=== PATIENT | female | born 1925 | race Caucasian/White ===

== ENCOUNTER 2016-06-20 16:25 | Emergency (ER) | payer MEDICARE, BC ==
[~2016-06-20] VITALS: Ht 162.6 cm; Wt 66.0 kg
[~2016-06-20 16:25] MED LIST: BENEPOW5 PO; CALCCHW6 CHEW; CEPH500C3 PO; GABA400 PO; MAGN250T13 PO; OCUVTAB4 PO; TEMA15 PO; TRAM50TA PO; VITA400C28 PO; [UNRECOGNIZED DRUG - OTHER] PO
[2016-06-20 16:42] VITALS: BP 122/66; PULSE 87; RESP 16; TEMP 97.9; O2SAT 95
--- NOTE | 2016-06-20 18:15 | PD ---
HPI Chief Complaint: GI Complaint Time Seen by Provider: 17:56 Travel History International Travel<30 days: No Contact w/Intl Traveler<30days: No Traveled to known affect area: No History of Present Illness HPI 89yo F with PMH of gastric ulcer was sent by PMD's office for black stool for 3 days. Pt has been having epigastric pain for 3 days as well. States it is intermittent and currently has no pain. Denies any fever, chest pain, sob, n/v , urinary complaints, focal weakness or numbness. Pt was admitted for GI bleed 01/2014 and had EGD with biopsy that showed gastric ulcer, gastritis. Also had colonoscopy that showed diverticulosis. Pt has been following up with GI physician Dr. Lima and had EGD 2014 that was normal. PFSH Past Medical History Arthritis: Yes Autoimmune Disease: No Blood Disorders: No Heart Rhythm Problems: No Cancer: No Cardiovascular Problems: No High Cholesterol: No Chest Pain: No Congestive Heart Failure: No Cerebrovascular Accident: No Diabetes: No Diminished Hearing: No Endocrine: No Gastrointestinal Disorders: Yes (CONSTIPATION A APROBLEM TAKES BENEFIBER & STOOL SOFTENER DAILY ) Glaucoma: No Genitourinary: No Headaches: No Hepatitis: No Hiatal Hernia: No Hypertension: No Immune Disorder: No Musculoskeletal: Yes (ARTHRITIS,BACK PROBLEMS--LUMBAR DEGENERATIVE DISCS) Neurologic: No Psychiatric: No Reproductive: No Respiratory: Yes (PT SMOKES 6 CIGS DAILY) Immunizations Current: Yes Seizures: No Thyroid Disease: No Past Surgical History Abdominal Surgery: Yes (CHOLECYSTECTOMY,APPENDECTOMY) AICD: No Appendectomy: Yes Body Medical Devices: PIN RIGHT SHOULDER Cardiac Surgery: No Cholecystectomy: Yes Ear Surgery: No Endocrine Surgery: No Eye Surgery: No Genitourinary Surgery: No Gynecologic Surgery: Yes (HYSTERECTOMY) Joint Replacement: Yes (R TOTAL KNEE) Neurologic Surgery: No Oral Surgery: Yes (TONSILLECTOMY,PERIODONTAL SURGERY) Pacemaker: No Thoracic Surgery: No Other Surgery: Yes (VEIN STRIPPING) Social History Alcohol Use: Yes (4 OZ/DAY WINE) Tobacco Use: Yes (1/2PK/DAY) Substance Use: No Allergies-Medications (Allergen,Severity, Reaction): Coded Allergies: Actonel (Verified Allergy, Intermediate, NAUSEA, 06/20/16) ADVERSE REACTION Celebrex (Verified Allergy, Intermediate, NAUSEA, 06/20/16) Codeine (Verified Allergy, Intermediate, UPSET STOMACH, 06/20/16) Cymbalta (Unverified Allergy, Intermediate, SWOLLEN JAW, SORES IN MOUTH, ) Daypro (Verified Allergy, Intermediate, 06/20/16) Evista (Verified Allergy, Intermediate, NAUSEA, 06/20/16) Fosamax (Verified Allergy, Intermediate, NAUSEA, 06/20/16) Hydrocodone (Verified Allergy, Intermediate, 06/20/16) VOMITING Lorcet (Verified Allergy, Intermediate, VOMITING, 06/20/16) Lortab (Verified Allergy, Intermediate, NAUSEA, 06/20/16) Mevacor (Verified Allergy, Intermediate, 06/20/16) PT STATES SHE HAD NO PROBLEM WITH THIS MEDICATION. HEARD IT COULD AFFECT HER LIVER AND DECIDED NOT TO TAKE IT. Percocet (Verified Allergy, Intermediate, VOMITING, 06/20/16) Sudafed (Verified Allergy, Intermediate, 06/20/16) Topamax (Verified Allergy, Intermediate, STOMACH UPSET, 06/20/16) Vioxx (Verified Allergy, Intermediate, NAUSEA, 06/20/16) Voltaren (Verified Allergy, Intermediate, LIVER PROBLEMS, 06/20/16) PT HAD NO REACTION. HEARD THAT MED COULD CAUSE LIVER PROBLEMS AND DECIDED NOT TO TAKE IT. Nonsteroidal Anti-Inflammatory Agts (Unverified Adverse Reaction, Intermediate, STOMACH ACHE, 06/20/16) Pramipexole (Unverified Adverse Reaction, Intermediate, STOMACH ACHE, 06/20) Reported Meds & Prescriptions Reported Meds & Active Scripts Active Omeprazole 20 Mg Tab 20 Mg PO DAILY 10 Days Reported Vitamin C (Ascorbic Acid) 500 Mg Cap 500 Mg PO DAILY Centrum Silver (Multiple Vitamins W/ Minerals) 1 Tab 1 Tab PO DAILY Miralax (Polyethylene Glycol 3350) 1 Pow Pow 1 Pkt PO DAILY Viactiv (Calcium-Vitamins D & K) 500-500-40 Mg-Unit-Mcg Chew 2 Ea CHEW DAILY Vitamin D (Cholecalciferol) 2,000 Unit Cap 2,000 Units PO DAILY Magnesium 100 Mg Cap 25 Mg PO DAILY Pramipexole (Pramipexole Dihydrochloride) 0.25 Mg Tab 0.25 Mg PO 1800 Preservision Areds (Multiple Vitamins W/ Minerals) 1 Tab 1 Tab PO DAILY Pramipexole (Pramipexole Dihydrochloride) 0.5 Mg Tab 0.5 Mg PO HS Pramipexole (Pramipexole Dihydrochloride) 0.25 Mg Tab 0.25 Mg PO 1500 Tramadol (Tramadol HCl) 50 Mg Tab 50 Mg PO Q6H PRN Gabapentin 600 Mg Tab 900 Mg PO TID Review of Systems Except as stated in HPI: all other systems reviewed are Neg Physical Exam Narrative GENERAL: 89yo F not in distress. SKIN: Warm and dry. HEAD: Atraumatic. Normocephalic. EYES: Pupils equal and round. No scleral icterus. No injection or drainage. CARDIOVASCULAR: Regular rate and rhythm. No murmur appreciated. RESPIRATORY: No accessory muscle use. Clear to auscultation. Breath sounds equal bilaterally. GASTROINTESTINAL: Abdomen soft, non-tender, nondistended. No rebound tenderness or guarding. RECTAL: Very small amount of stool, appears dark, negative hemaprompt. MUSCULOSKELETAL: No obvious deformities. No clubbing. No cyanosis. No edema. NEUROLOGICAL: Awake and alert. No obvious cranial nerve deficits. Motor grossly within normal limits. Normal speech. PSYCHIATRIC: Appropriate mood and affect; insight and judgment normal. Data Data Last Documented VS Vital Signs Date Time Temp Pulse Resp B/P Pulse Ox O2 Delivery O2 Flow Rate FiO2 06/20/16 19:47 89 177/89 95 Room Air 06/20/16 18:47 18 06/20/16 16:42 97.9 Orders Complete Blood Count With Diff (06/20/16 18:07) Basic Metabolic Panel (Bmp) (06/20/16 18:07) Prothrombin Time / Inr (Pt) (06/20/16 18:07) Act Partial Throm Time (Ptt) (06/20/16 18:07) Type And Screen (06/20/16 18:07) Lipase (06/20/16 18:07) Electrocardiogram (06/20/16 ) Troponin I (06/20/16 18:07) Sodium Chlorid 0.9% 500 Ml Inj (Ns 500 M (06/20/16 19:30) Labs Laboratory Tests Test 06/20/16 18:30 White Blood Count 5.8 TH/MM3 Red Blood Count 4.59 MIL/MM3 Hemoglobin 13.2 GM/DL Hematocrit 41.0 % Mean Corpuscular Volume 89.2 FL Mean Corpuscular Hemoglobin 28.7 PG Mean Corpuscular Hemoglobin 32.2 % Concent Red Cell Distribution Width 15.9 % Platelet Count 347 TH/MM3 Mean Platelet Volume 6.8 FL Neutrophils (%) (Auto) 55.3 % Lymphocytes (%) (Auto) 28.2 % Monocytes (%) (Auto) 11.3 % Eosinophils (%) (Auto) 4.1 % Basophils (%) (Auto) 1.1 % Neutrophils # (Auto) 3.2 TH/MM3 Lymphocytes # (Auto) 1.6 TH/MM3 Monocytes # (Auto) 0.7 TH/MM3 Eosinophils # (Auto) 0.2 TH/MM3 Basophils # (Auto) 0.1 TH/MM3 CBC Comment DIFF FINAL Differential Comment Prothrombin Time 10.9 SEC Prothromb Time International 1.0 RATIO Ratio Activated Partial 27.5 SEC Thromboplast Time Sodium Level 140 MEQ/L Potassium Level 4.7 MEQ/L Chloride Level 105 MEQ/L Carbon Dioxide Level 26.3 MEQ/L Anion Gap 9 MEQ/L Blood Urea Nitrogen 31 MG/DL Creatinine 0.87 MG/DL Estimat Glomerular Filtration 61 ML/MIN Rate Random Glucose 85 MG/DL Calcium Level 8.7 MG/DL Troponin I 0.07 NG/ML Lipase 126 U/L Blood Type O POSITIVE Antibody Screen NEGATIVE MDM Medical Decision Making Medical Screen Exam Complete: Yes Emergency Medical Condition: Yes Interpretation(s) EKG: NSR 69bpm. RBBB. TWI III. Unchanged from prior. Laboratory Tests Test 06/20/16 18:30 White Blood Count 5.8 TH/MM3 (4.0-11.0) Red Blood Count 4.59 MIL/MM3 (4.00-5.30) Hemoglobin 13.2 GM/DL (11.6-15.3) Hematocrit 41.0 % (35.0-46.0) Mean Corpuscular Volume 89.2 FL (80.0-100.0) Mean Corpuscular Hemoglobin 28.7 PG (27.0-34.0) Mean Corpuscular Hemoglobin 32.2 % Concent (32.0-36.0) Red Cell Distribution Width 15.9 % (11.6-17.2) Platelet Count 347 TH/MM3 (150-450) Mean Platelet Volume 6.8 FL (7.0-11.0) Neutrophils (%) (Auto) 55.3 % (16.0-70.0) Lymphocytes (%) (Auto) 28.2 % (9.0-44.0) Monocytes (%) (Auto) 11.3 % (0.0-8.0) Eosinophils (%) (Auto) 4.1 % (0.0-4.0) Basophils (%) (Auto) 1.1 % (0.0-2.0) Neutrophils # (Auto) 3.2 TH/MM3 (1.8-7.7) Lymphocytes # (Auto) 1.6 TH/MM3 (1.0-4.8) Monocytes # (Auto) 0.7 TH/MM3 (0-0.9) Eosinophils # (Auto) 0.2 TH/MM3 (0-0.4) Basophils # (Auto) 0.1 TH/MM3 (0-0.2) CBC Comment DIFF FINAL Differential Comment Prothrombin Time 10.9 SEC (9.8-11.6) Prothromb Time International 1.0 RATIO Ratio Activated Partial 27.5 SEC Thromboplast Time (24.3-30.1) Sodium Level 140 MEQ/L (136-145) Potassium Level 4.7 MEQ/L (3.5-5.1) Chloride Level 105 MEQ/L (98-107) Carbon Dioxide Level 26.3 MEQ/L (21.0-32.0) Anion Gap 9 MEQ/L (5-15) Blood Urea Nitrogen 31 MG/DL (7-18) Creatinine 0.87 MG/DL (0.50-1.00) Estimat Glomerular Filtration 61 ML/MIN (>89) Rate Random Glucose 85 MG/DL (74-106) Calcium Level 8.7 MG/DL (8.5-10.1) Troponin I 0.07 NG/ML (0.02-0.05) Lipase 126 U/L (73-393) Differential Diagnosis Black stool secondary to peptol bismol use vs. Upper GI bleed secondary to gastritis vs. gastric ulcer vs. pancreatitis vs. atypical ACS Narrative Course 89yo F was sent here for black stool for 3 days. Pt was sent here by PMD's office. I checked hemaprompt twice at different times and it was negative both times. Pt does have black stool and states she took peptol bismol on Saturday so that may be the cause of black stool. Pt's abdominal exam is benign. Pt's vital signs are normal. H/H is 13.2/41.0. BUN is elevated at 31, will give NS IVF 500cc. Pt is tolerating PO and just has not been eating or drinking much today because she was at at doctor's office all day. Lipase normal. Troponin is mildly elevated at 0.07. Pt has no chest pain or sob. Pt has had elevated troponin before in her last admission in [address] Kiran. She states Dr. Kiran checked her heart and everything was fine. I discussed the case with Dr. Kiran and he states that she can follow up with him as an outpatient. Pt also has an appointment with GI and informed to call them and follow up with him earlier. Strict return precautions given. HemaPrompt Point of Care Internal Pos. & Neg. Controls: Passed Fecal Specimen Occult Blood: Negative Diagnosis Primary Impression: Abdominal pain Qualified Code: R10.13 - Epigastric pain Referrals: Hong Kiran MD call for appointment Patient Instructions: General Instructions Departure Forms: Tests/Procedures Additional Instructions: Please call Dr. Kiran's office and follow up with him as an outpatient. Please also follow up with your GI physician Dr. Lima as an outpatient. Return to the ED immediately if you have chest pain, sob, dizziness, nausea, vomiting, worsening abdominal pain, or continue black stool. Med/Other Pt SpecificInfo: Prescription(s) given Scripts Omeprazole 20 Mg Tab20 Mg PO DAILY 10 Days Ref 0 Prov:Tiffanie Blankenship DO 06/20/16 Disposition: 01 DISCHARGE HOME Condition: Stable Tiffanie Blankenship DO Jun 20, 2016 18:14
[2016-06-20 18:36] LABS: AUTOMATED NEUTROPHIL # 3.2 TH/MM3 (1.8-7.7); BASOPHIL # 0.1 TH/MM3 (0-0.2); BASOPHIL % 1.1 % (0.0-2.0); EOSINOPHIL # 0.2 TH/MM3 (0-0.4); EOSINOPHIL % 4.1 % (0.0-4.0); HEMO FLAGS DIFF FINAL; LYMPH % 28.2 % (9.0-44.0); LYMPHOCYTE # 1.6 TH/MM3 (1.0-4.8); MEAN CELL VOLUME 89.2 FL (80.0-100.0); MEAN CORPUSCULAR HEMOGLOBIN 28.7 PG (27.0-34.0); MEAN CORPUSCULAR HGB CONC 32.2 % (32.0-36.0); MONO % 11.3 % (0.0-8.0); NEUT % 55.3 % (16.0-70.0); PLATELET COUNT 347 TH/MM3 (150-450); RED BLOOD COUNT 4.59 MIL/MM3 (4.00-5.30); RED CELL DISTRIBUTION WIDTH 15.9 % (11.6-17.2); WHITE BLOOD COUNT 5.8 TH/MM3 (4.0-11.0)
[2016-06-20] MEDS ORDERED: VITA200013 PO (18:45)
[2016-06-20] MEDS ORDERED: MIRA3350 PO (18:45)
[2016-06-20] MEDS ORDERED: GABA600T PO (18:45)
[2016-06-20] MEDS ORDERED: TRAM50TA PO (18:45)
[2016-06-20] MEDS ORDERED: OCUVTAB4 PO (18:45)
[2016-06-20] MEDS ORDERED: ASCO500C PO (18:45)
[2016-06-20] MEDS ORDERED: CENTTAB PO (18:45)
[2016-06-20] MEDS ORDERED: PRAM0.25 PO ×2 (18:45)
[2016-06-20] MEDS ORDERED: CALC8.5C CHEW (18:45)
[2016-06-20] MEDS ORDERED: M2 M100C PO (18:45)
[2016-06-20] MEDS ORDERED: PRAM0.5T PO (18:45)
[2016-06-20 18:47] VITALS: BP 159/91; PULSE 69; RESP 18; O2SAT 95
[2016-06-20 18:55] LABS: BICARBONATE 26.3 MEQ/L (21.0-32.0)
[2016-06-20 18:57] LABS: APTT (PATIENT) 27.5 SEC (24.3-30.1); PROTHROMBIN TIME - PATIENT 10.9 SEC (9.8-11.6)
[2016-06-20 19:03] LABS: POTASSIUM 4.7 MEQ/L (3.5-5.1)
[2016-06-20] MEDS ORDERED: SODIUM CHLORID 0.9% 500 ML INJ 500 ML IV ONE (19:30)
[2016-06-20] MEDS ORDERED: OMEP20TA PO (19:32)
[2016-06-20 19:47] VITALS: BP 177/89; PULSE 89; O2SAT 95
--- NOTE | 2016-06-21 13:58 | EKG ---
Date Performed: 06/20/2016 Time Performed: 18:32:52 PTAGE: 89 years EKG: Sinus rhythm Left axis deviation RBBB with left anterior fascicular block Abnormal ECG PREVIOUS TRACING : 01/22/2014 16.59 DOCTOR: Bernabe Mcelroy Interpretating Date/Time 06/21/2016 13:53:19
== END 2016-06-20 20:07 | disposition home or self-care (01) ==
LOC: PHED 16:25
DX: R10.13 Epigastric pain (principal); F17.210 Nicotine dependence, cigarettes, uncomplicated; R94.31 Abnormal electrocardiogram [ECG] [EKG]
CPT/HCPCS: 80048; 83690; 84484; 85025; 85610; 85730; 86850; 86900; 86901; 93005; 99284; J7040

== ENCOUNTER 2016-08-17 11:35 | Emergency (ER) | payer MEDICARE, BC ==
[~2016-08-17] VITALS: Ht 162.6 cm; Wt 66.1 kg
[~2016-08-17 11:35] MED LIST changes: +ASCO500C PO; -BENEPOW5 PO; +CALC8.5C CHEW; -CALCCHW6 CHEW; +CENTTAB PO; -CEPH500C3 PO; -GABA400 PO; +GABA600T PO; +M2 M100C PO; -MAGN250T13 PO; +MIRA3350 PO; +OMEP20TA PO; +PRAM0.25 PO; +PRAM0.5T PO; -TEMA15 PO; +VITA200013 PO; -VITA400C28 PO; -[UNRECOGNIZED DRUG - OTHER] PO
[2016-08-17 11:47] VITALS: BP 141/91; PULSE 88; RESP 16; TEMP 98.4; O2SAT 97
--- NOTE | 2016-08-17 12:01 | PD ---
HPI Chief Complaint: Musculoskeletal Complaint Time Seen by Provider: 11:58 Travel History International Travel<30 days: No Contact w/Intl Traveler<30days: No Traveled to known affect area: No History of Present Illness HPI 89-year-old female presents the emergency Department with worsening left-sided shoulder pain over the past 5 days. There is been no history of injury, fever, or cough, nausea, or other symptoms. Patient states the pain is gotten progressively worse and now is a 9-10 over 10. Seems worse with movement. Patient has no history of rheumatoid arthritis, or cardiac history according to the patient. Patient states she recently underwent a stress test a month ago. Patient has significant allergy history please see list. PFSH Past Medical History Arthritis: Yes Autoimmune Disease: No Blood Disorders: No Heart Rhythm Problems: No Cancer: No Cardiovascular Problems: No High Cholesterol: No Chest Pain: No Congestive Heart Failure: No Cerebrovascular Accident: No Diabetes: No Diminished Hearing: No Endocrine: No Gastrointestinal Disorders: Yes (CONSTIPATION A APROBLEM TAKES BENEFIBER & STOOL SOFTENER DAILY ) Glaucoma: No Genitourinary: No Headaches: No Hepatitis: No Hiatal Hernia: No Hypertension: No Immune Disorder: No Musculoskeletal: Yes (ARTHRITIS,BACK PROBLEMS--LUMBAR DEGENERATIVE DISCS) Neurologic: No Psychiatric: No Reproductive: No Respiratory: Yes Immunizations Current: Yes Seizures: No Thyroid Disease: No ?: Not Past Surgical History Abdominal Surgery: Yes (CHOLECYSTECTOMY,APPENDECTOMY) AICD: No Appendectomy: Yes Body Medical Devices: PIN RIGHT SHOULDER Cardiac Surgery: No Cholecystectomy: Yes Ear Surgery: No Endocrine Surgery: No Eye Surgery: No Genitourinary Surgery: No Gynecologic Surgery: Yes (HYSTERECTOMY) Joint Replacement: Yes (R TOTAL KNEE) Neurologic Surgery: No Oral Surgery: Yes (TONSILLECTOMY,PERIODONTAL SURGERY) Pacemaker: No Thoracic Surgery: No Other Surgery: Yes (VEIN STRIPPING) Social History Alcohol Use: Yes (4 OZ/DAY WINE) Tobacco Use: No (former) Substance Use: No Allergies-Medications (Allergen,Severity, Reaction): Coded Allergies: Actonel (Verified Allergy, Intermediate, NAUSEA, 08/17/16) ADVERSE REACTION Celebrex (Verified Allergy, Intermediate, NAUSEA, 08/17/16) Codeine (Verified Allergy, Intermediate, UPSET STOMACH, 08/17/16) Cymbalta (Unverified Allergy, Intermediate, SWOLLEN JAW, SORES IN MOUTH, ) Daypro (Verified Allergy, Intermediate, 08/17/16) Evista (Verified Allergy, Intermediate, NAUSEA, 08/17/16) Fosamax (Verified Allergy, Intermediate, NAUSEA, 08/17/16) Hydrocodone (Verified Allergy, Intermediate, 08/17/16) VOMITING Lorcet (Verified Allergy, Intermediate, VOMITING, 08/17/16) Lortab (Verified Allergy, Intermediate, NAUSEA, 08/17/16) Mevacor (Verified Allergy, Intermediate, 08/17/16) PT STATES SHE HAD NO PROBLEM WITH THIS MEDICATION. HEARD IT COULD AFFECT HER LIVER AND DECIDED NOT TO TAKE IT. Percocet (Verified Allergy, Intermediate, VOMITING, 08/17/16) Sudafed (Verified Allergy, Intermediate, 08/17/16) Topamax (Verified Allergy, Intermediate, STOMACH UPSET, 08/17/16) Vioxx (Verified Allergy, Intermediate, NAUSEA, 08/17/16) Voltaren (Verified Allergy, Intermediate, LIVER PROBLEMS, 08/17/16) PT HAD NO REACTION. HEARD THAT MED COULD CAUSE LIVER PROBLEMS AND DECIDED NOT TO TAKE IT. Nonsteroidal Anti-Inflammatory Agts (Unverified Adverse Reaction, Intermediate, STOMACH ACHE, 08/17/16) Pramipexole (Unverified Adverse Reaction, Intermediate, STOMACH ACHE, 08/17) Reported Meds & Prescriptions Reported Meds & Active Scripts Active Omeprazole 20 Mg Tab 20 Mg PO DAILY 10 Days Reported Dicyclomine (Dicyclomine HCl) 10 Mg Cap 10 Mg PO QID Promethazine (Promethazine HCl) 12.5 Mg Tab 12.5 Mg PO Q6H PRN Omeprazole 20 Mg Tab 20 Mg PO DAILY Cephalexin 500 Mg Cap 500 Mg PO Q12H Vitamin C (Ascorbic Acid) 500 Mg Cap 500 Mg PO DAILY Centrum Silver (Multiple Vitamins W/ Minerals) 1 Tab 1 Tab PO DAILY Miralax (Polyethylene Glycol 3350) 1 Pow Pow 1 Pkt PO DAILY Viactiv (Calcium-Vitamins D & K) 500-500-40 Mg-Unit-Mcg Chew 2 Ea CHEW DAILY Vitamin D (Cholecalciferol) 2,000 Unit Cap 2,000 Units PO DAILY Magnesium 100 Mg Cap 25 Mg PO DAILY Preservision Areds (Multiple Vitamins W/ Minerals) 1 Tab 1 Tab PO DAILY Pramipexole (Pramipexole Dihydrochloride) 0.5 Mg Tab 0.5 Mg PO HS Pramipexole (Pramipexole Dihydrochloride) 0.25 Mg Tab 0.25 Mg PO 1500 Tramadol (Tramadol HCl) 50 Mg Tab 50 Mg PO Q6H PRN Gabapentin 600 Mg Tab 900 Mg PO TID Review of Systems Except as stated in HPI: all other systems reviewed are Neg General / Constitutional: No: Fever Eyes: No: Visual changes HENT: No: Headaches Cardiovascular: No: Chest Pain or Discomfort Respiratory: No: Shortness of Breath Gastrointestinal: No: Abdominal Pain Genitourinary: No: Dysuria Musculoskeletal: Positive: Arthralgias (see history present illness.), Limited ROM, Pain Skin: No Rash Neurologic: No: Weakness Psychiatric: No: Depression Endocrine: No: Polydipsia Hematologic/Lymphatic: No: Easy Bruising Physical Exam Narrative GENERAL: Patient appears in moderate distress due to pain. SKIN: Warm and dry. Normal color. Normal turgor. No obvious signs of infection. HEAD: Atraumatic. Normocephalic. EYES: Pupils equal and round. No scleral icterus. No injection or drainage. ENT: No nasal bleeding or discharge. Mucous membranes pink and moist. Pharynx is clear. NECK: Trachea midline. No JVD. Neck is nontender and has normal range of motion. CARDIOVASCULAR: Regular rate and rhythm. No murmurs gallops or rubs RESPIRATORY: No accessory muscle use. Clear to auscultation. Breath sounds equal bilaterally. GASTROINTESTINAL: Abdomen soft, non-tender, nondistended. Hepatic and splenic margins not palpable. MUSCULOSKELETAL: Extremities without clubbing, cyanosis, or edema. No obvious deformities. She complains of pain in the left shoulder with palpation and motion. No obvious deformity is noted. No signs of infection or effusion is noted. No signs of dislocation or fracture noted. NEUROLOGICAL: Awake and alert. No obvious cranial nerve deficits. Motor grossly within normal limits. Five out of 5 muscle strength in the arms and legs. Normal speech. PSYCHIATRIC: Appropriate mood and affect; insight and judgment normal. Data Data Last Documented VS Vital Signs Date Time Temp Pulse Resp B/P Pulse Ox O2 Delivery O2 Flow Rate FiO2 08/17/16 12:55 97 Room Air 08/17/16 11:47 98.4 88 16 141/91 Orders Electrocardiogram (08/17/16 12:02) Ckmb (Isoenzyme) Profile (08/17/16 12:02) Complete Blood Count With Diff (08/17/16 12:02) Comprehensive Metabolic Panel (08/17/16 12:02) Magnesium (Mg) (08/17/16 12:02) Prothrombin Time / Inr (Pt) (08/17/16 12:02) Act Partial Throm Time (Ptt) (08/17/16 12:02) Troponin I (08/17/16 12:02) Chest, Single Ap (08/17/16 12:02) Ecg Monitoring (08/17/16 12:02) Bilateral Bp Monitoring (08/17/16 12:02) Iv Access Insert/Monitor (08/17/16 12:) Oximetry (08/17/16 12:02) Oxygen Administration (08/17/16 12:02) Aspirin Chew (Aspirin Chew) (08/17/16 12:15) Morphine Inj (Morphine Inj) (08/17/16 12:15) Sodium Chloride 0.9% Flush (Ns Flush) (08/17/16 12:15) Ondansetron Inj (Zofran Inj) (08/17/16 12:15) Shoulder, Complete (>2vws) (08/17/16 12:02) Ice/Cold Pack (08/17/16 12:02) Westergren Sedimentation Rate (08/17/16 12:02) Dexamethasone Inj (Decadron Inj) (08/17/16 12:15) B-Type Natriuretic Peptide (08/17/16 12:59) Nitroglycerin 2% Oint (Nitroglycerin 2% (08/17/16 13:00) MDM Medical Decision Making Medical Screen Exam Complete: Yes Emergency Medical Condition: Yes Medical Record Reviewed: Yes Differential Diagnosis Left shoulder pain. Possible rotator cuff tendinitis. Possible cardiac syndrome. Narrative Course Patient is in pain but apparently medically stable at time of exam. Labs ordered including CBC, CMP, cardiac panel, ESR, and proBNP. EKG is ordered as well as chest x-ray and left shoulder x-ray. Patient is given 4 mg IV Zofran, 4 mg IV morphine. Patient is discussed with Dr. Linton is the patient's test x-ray suggestive of possible CHF, and care is taken over by him at 1300 hrs. Patient is given aspirin 324 mg by mouth as well as 1 inch nitroglycerin paste. Final disposition will be determined by Dr. Linton. Condition: Stable Maicol Villarreal August 17, 2016 12:01
[2016-08-17] MEDS ORDERED: CEPH500C PO (12:06)
[2016-08-17] MEDS ORDERED: PROM12.54 PO (12:06)
[2016-08-17] MEDS ORDERED: OMEP20TA PO (12:06)
[2016-08-17] MEDS ORDERED: DICY10CA12 PO (12:06)
[2016-08-17] MEDS ORDERED: ASPIRIN 81 MG CHEW TAB PO ONE (12:15)
[2016-08-17] MEDS ORDERED: DEXAMETHASONE SOD PHOS 20 MG/5 ML VIAL IV PUSH ONE (12:15)
[2016-08-17] MEDS ORDERED: SODIUM CHLORIDE 0.9% FLUSH 10 ML FLUSH IVF PRN (12:15)
[2016-08-17] MEDS ORDERED: ONDANSETRON HCL 4 MG/2 ML VIAL IV PUSH ONE (12:15)
[2016-08-17] MEDS ORDERED: MORPHINE SULFATE 4 MG/ML INJ IV PUSH ONE (12:15)
--- NOTE | 2016-08-17 12:48 | RADHPO ---
EXAM DATE/TIME: 08/17/2016 12:10 [facility] COMPARISON: No previous studies available for comparison. INDICATIONS : Short of breath MEDICAL HISTORY : None. SURGICAL HISTORY : None. ENCOUNTER: Initial ACUITY: 1 day PAIN SCORE: 10/10 LOCATION: Bilateral chest FINDINGS: There is cardiomegaly with mild interstitial edema present. There is no evidence of consolidation, p leural effusion or pneumothorax. The portion of the bony skeleton visualized is unremarkable. CONCLUSION: Mild to moderate congestive failure. Jesse Infante MD FACR on August 17, 2016 at 12:45 Board Certified Radiologist. This report was verified electronically.
--- NOTE | 2016-08-17 12:50 | RADHPO ---
EXAM DATE/TIME: 08/17/2016 12:12 [facility] COMPARISON: No previous studies available for comparison. INDICATIONS : Left shoulder pain with no known injury MEDICAL HISTORY : None. SURGICAL HISTORY : None. ENCOUNTER: Initial ACUITY: 4 - 6 days PAIN SCORE: 10/10 LOCATION: Left entire shoulder FINDINGS: Multiple view examination of the left shoulder demonstrates no evidence of fracture or dislocation. The glenohumeral and acromioclavicular joints are maintained. There is normal range of motion betwee n internal and external rotation. Bony mineralization is normal. CONCLUSION: No acute disease. No significant arthropathy. Cr James MD on August 17, 2016 at 12:47 Board Certified Radiologist. This report was verified electronically.
[2016-08-17 12:55] VITALS: O2SAT 97
[2016-08-17] MEDS ORDERED: NITROGLYCERIN 2% OINT 1 GM PACKET TOPICAL ONE (13:00)
[2016-08-17 13:01] LABS: AUTOMATED NEUTROPHIL # 7.8 TH/MM3 (1.8-7.7); BASOPHIL % 0.2 % (0.0-2.0); EOSINOPHIL % 0.2 % (0.0-4.0); HEMATOCRIT 38.3 % (35.0-46.0); HEMO FLAGS DIFF FINAL; LYMPH % 5.7 % (9.0-44.0); LYMPHOCYTE # 0.5 TH/MM3 (1.0-4.8); MEAN CELL VOLUME 87.2 FL (80.0-100.0); MEAN CORPUSCULAR HEMOGLOBIN 28.5 PG (27.0-34.0); MEAN CORPUSCULAR HGB CONC 32.7 % (32.0-36.0); MONO % 6.7 % (0.0-8.0); NEUT % 87.2 % (16.0-70.0); PLATELET COUNT 322 TH/MM3 (150-450); RED BLOOD COUNT 4.39 MIL/MM3 (4.00-5.30); RED CELL DISTRIBUTION WIDTH 13.6 % (11.6-17.2); WHITE BLOOD COUNT 8.9 TH/MM3 (4.0-11.0)
[2016-08-17 13:02] VITALS: BP_SYST 127; BP_SYST 173; BP_DIAS 68; BP_DIAS 70; PULSE 82; RESP 20; O2SAT 94
[2016-08-17 13:17] LABS: CHLORIDE 94 MEQ/L (98-107); POTASSIUM 3.5 MEQ/L (3.5-5.1); SODIUM (NA) 133 MEQ/L (136-145)
[2016-08-17 13:21] LABS: ANION GAP 7 MEQ/L (5-15); BICARBONATE 31.9 MEQ/L (21.0-32.0); BLOOD UREA NITROGEN 16 MG/DL (7-18); MAGNESIUM 2.4 MG/DL (1.5-2.5)
[2016-08-17 13:22] LABS: APTT (PATIENT) 31.4 SEC (24.3-30.1); PROTHROMBIN TIME - PATIENT 10.6 SEC (9.8-11.6)
[2016-08-17 13:24] LABS: ALT (GPT) 20 U/L (10-53); AST (GOT) 21 U/L (15-37); GLOMERULAR FILTRATION RATE 92 ML/MIN (>89)
[2016-08-17 13:25] LABS: TOTAL BILIRUBIN ADULT 0.4 MG/DL (0.2-1.0)
[2016-08-17 13:27] LABS: ALKALINE PHOSPHATASE 61 U/L (45-117); CREATINE KINASE 118 U/L (26-192)
[2016-08-17 13:39] LABS: CKMB 0.5 NG/ML (0.5-3.6)
[2016-08-17 15:10] VITALS: BP 169/82; PULSE 73; RESP 20; O2SAT 94
--- NOTE | 2016-08-17 15:13 | PD ---
Data Data Last Documented VS Vital Signs Date Time Temp Pulse Resp B/P Pulse Ox O2 Delivery O2 Flow Rate FiO2 08/17/16 13:02 82 20 173/70 94 Nasal Cannula 2 127/68 08/17/16 11:47 98.4 Orders Electrocardiogram (08/17/16 12:02) Ckmb (Isoenzyme) Profile (08/17/16 12:02) Complete Blood Count With Diff (08/17/16 12:02) Comprehensive Metabolic Panel (08/17/16 12:02) Magnesium (Mg) (08/17/16 12:02) Prothrombin Time / Inr (Pt) (08/17/16 12:02) Act Partial Throm Time (Ptt) (08/17/16 12:02) Troponin I (08/17/16 12:02) Chest, Single Ap (08/17/16 12:02) Ecg Monitoring (08/17/16 12:02) Bilateral Bp Monitoring (08/17/16 12:02) Iv Access Insert/Monitor (08/17/16 12:02) Oximetry (08/17/16 12:02) Oxygen Administration (08/17/16 12:02) Aspirin Chew (Aspirin Chew) (08/17/16 12:15) Morphine Inj (Morphine Inj) (08/17/16 12:15) Sodium Chloride 0.9% Flush (Ns Flush) (08/17/16 12:15) Ondansetron Inj (Zofran Inj) (08/17/16 12:15) Shoulder, Complete (>2vws) (08/17/16 12:02) Ice/Cold Pack (08/17/16 12:02) Westergren Sedimentation Rate (08/17/16 12:02) Dexamethasone Inj (Decadron Inj) (08/17/16 12:15) B-Type Natriuretic Peptide (08/17/16 12:59) Nitroglycerin 2% Oint (Nitroglycerin 2% (08/17/16 13:00) CKMB (08/17/16 12:40) CKMB% (08/17/16 12:40) Labs Laboratory Tests Test 08/17/16 5 12:40 13:10 White Blood Count 8.9 TH/MM3 Red Blood Count 4.39 MIL/MM3 Hemoglobin 12.5 GM/DL Hematocrit 38.3 % Mean Corpuscular Volume 87.2 FL Mean Corpuscular Hemoglobin 28.5 PG Mean Corpuscular Hemoglobin 32.7 % Concent Red Cell Distribution Width 13.6 % Platelet Count 322 TH/MM3 Mean Platelet Volume 6.5 FL Neutrophils (%) (Auto) 87.2 % Lymphocytes (%) (Auto) 5.7 % Monocytes (%) (Auto) 6.7 % Eosinophils (%) (Auto) 0.2 % Basophils (%) (Auto) 0.2 % Neutrophils # (Auto) 7.8 TH/MM3 Lymphocytes # (Auto) 0.5 TH/MM3 Monocytes # (Auto) 0.6 TH/MM3 Eosinophils # (Auto) 0.0 TH/MM3 Basophils # (Auto) 0.0 TH/MM3 CBC Comment DIFF FINAL Differential Comment Erythrocyte Sedimentation Rate 51 mm/hr Prothrombin Time 10.6 SEC Prothromb Time International 1.0 RATIO Ratio Activated Partial 31.4 SEC Thromboplast Time Sodium Level 133 MEQ/L Potassium Level 3.5 MEQ/L Chloride Level 94 MEQ/L Carbon Dioxide Level 31.9 MEQ/L Anion Gap 7 MEQ/L Blood Urea Nitrogen 16 MG/DL Creatinine 0.61 MG/DL Estimat Glomerular Filtration 92 ML/MIN Rate Random Glucose 98 MG/DL Calcium Level 9.2 MG/DL Magnesium Level 2.4 MG/DL Total Bilirubin 0.4 MG/DL Aspartate Amino Transf 21 U/L (AST/SGOT) Alanine Aminotransferase 20 U/L (ALT/SGPT) Alkaline Phosphatase 61 U/L Total Creatine Kinase 118 U/L Creatine Kinase MB 0.5 NG/ML Troponin I 0.05 NG/ML Total Protein 7.7 GM/DL Albumin 3.6 GM/DL B-Type Natriuretic Peptide 76 PG/ML [facility] Supervised Visit with VANNA: Yes Narrative Course This patient was started by PA and he in the fast track but realized it was more extensive work up and transferred to my care in the medical area I have reviewed the entirety of the workup and discussed with the patient IV placed CBC normal Metabolic profile normal Cardiac enzymes are normal I reviewed her left shoulder x-ray which is normal I reviewed her chest x-ray which the radiologist thought might show a hint of pulmonary edema but on a clinical basis I don't think so I reviewed her EKG which shows sinus rhythm and no ST elevation On clinical exam this seems to be musculoskeletal pain. She is tender in the chest wall and shoulder trapezius It is clearly noncardiac I don't see any sign of infection or septic joint Her sedimentation rate is 51 but in an 89-year-old that's of unclear significance She should ice the shoulder and rest it and follow-up with her physician. She has pain pills at home and requests muscle relaxer and I have written her some Norflex and warned her about potential sedation Diagnosis Primary Impression: Musculoskeletal chest pain Additional Impression: Left shoulder pain Qualified Code: M25.512 - Acute pain of left shoulder Additional Instruction: The patient was advised to follow up with their physician and return if they worsen. The patient was warned about potential sedation for the medications they will receive on prescription. Ice left shoulder Med/Other Pt SpecificInfo: Prescription(s) given Disposition: DISCHARGE HOME Condition: Stable Trey Lanier MD August 17, 2016 15:13
[2016-08-17] MEDS ORDERED: PRED20 PO (15:14)
[2016-08-17] MEDS ORDERED: ORPH100T99 PO (15:14)
--- NOTE | 2016-08-18 13:51 | EKG ---
Date Performed: 08/17/2016 Time Performed: 12:25:44 PTAGE: 89 years EKG: Sinus rhythm Left axis deviation RBBB with left anterior fascicular block Since previous tracing, no significant change noted Abnormal ECG PREVIOUS TRACING : 06/20/2016 18.32 DOCTOR: Lacy Durham Interpretating Date/Time 08/18/2016 13:49:37
== END 2016-08-17 15:32 | disposition home or self-care (01) ==
LOC: PHED 11:35
DX: R07.89 Other chest pain (principal); M25.512 Pain in left shoulder; R94.31 Abnormal electrocardiogram [ECG] [EKG]; Z87.39 Personal history of other diseases of the musculoskeletal system and connective tissue; Z87.19 Personal history of other diseases of the digestive system; Z87.09 Personal history of other diseases of the respiratory system; Z87.891 Personal history of nicotine dependence
CPT/HCPCS: 71010; 73030; 80053; 82550; 82552; 83735; 83880; 84484; 85025; 85610; 85652; 85730; 93005; 96374; 96375; 99284; J1100; J2270; J2405